=== PATIENT | male | born 1935 | race Caucasian/White ===

== ENCOUNTER → 2017-09-14 | Outpatient (CLI) | payer MEDICARE, OTHER ==
[~2017-09-14] MED LIST: ASPI81CH PO; FINA5 PO; GLUC500 PO; GLUCOSAMINE HC500 MG PO; Hair, Skin & N1 EACH PO; LISI20 PO; METO50ER PO; Sulfamethoxazo1 EAC1 PO; TAMS.4ER PO
== END ==
LOC: LAB SHORT 16:55 → LAB EV 16:55
DX: R33.9 Retention of urine, unspecified (principal)
CPT/HCPCS: 87086

== ENCOUNTER → 2021-04-13 | Outpatient (CLI) | payer MEDICARE, OTHER | END | disposition home or self-care (01) | LOC: LAB SHORT 08:22 | DX: L60.2 Onychogryphosis (principal); B35.1 Tinea unguium | CPT/HCPCS: 88305; 88312 ==